=== PATIENT | male | born 1950 | race Caucasian/White ===

== ENCOUNTER 2018-07-11 06:22 | Day surgery (SDC) | payer OTHER ==
[2018-07-09 16:10] LABS: Absolute Lymphocytes (CBC) 2.2 K/uL (0.7-4.9); Absolute Monocytes 0.7 K/uL (0.1-1.3); Absolute Neutrophil 3.7 K/uL (1.8-8.0); Basophils % 0.4 % (0-1.3); Eosinophils % 1.5 % (0-4.4); Hematocrit 45.5 % (39.6-49.0); Lymphocytes % 32.4 % (15.3-44.8); Monocytes % 10.4 % (3.3-12.3); RBC Red Blood Cell Count 4.68 M/uL (4.33-5.43)
--- NOTE | 2018-07-09 16:22 | RAD REPORT ---
EXAM DESCRIPTION: RAD - Chest Pa And Lat (2 Views) - 07/09/2018 4:17 pm CLINICAL HISTORY: preop Chest pain. COMPARISON: No comparisons FINDINGS: A small left pleural effusion is present. The lungs are otherwise grossly clear. The heart is mildly prominent size with a tortuous thoracic aorta. No displaced fractures.
[2018-07-09 16:24] LABS: Potassium 4.3 mmol/L (3.5-5.1)
[2018-07-11] MEDS ORDERED: Ringers Lactate 1,000 ML IV ONE (06:57)
[2018-07-11] MEDS ORDERED: CEFAZOLIN/SWI 1gm 1 GM/10 ML SYR ONE (06:57)
[2018-07-11] MEDS ORDERED: PROPOFOL 200 MG/20 ML VIAL IV ONE (07:18)
[2018-07-11] MEDS ORDERED: FENTANYL CITR 100 MCG/2 ML ONE (07:19)
[2018-07-11] MEDS ORDERED: MIDAZOLAM HCL 2 MG/2 ML INJ ONE (07:19)
[2018-07-11] MEDS ORDERED: LIDOCAINE 2% MPF 5 ML VIAL ONE (07:20)
[2018-07-11] MEDS ORDERED: ROCURONIUM 50 MG/5 ML VIAL IV ONE (07:20)
[2018-07-11] MEDS ORDERED: ONDANSETRON 4 MG/2 ML VIAL ONE (07:21)
[2018-07-11] MEDS ORDERED: BUPIVACAINE 0.5% PF 10 ML VIAL ONE (07:27)
--- NOTE | 2018-07-11 08:39 | P.BOP ---
Preoperative diagnosis: incarcerated umbilical tender hernia, obesity, diastasis recti Postoperative diagnosis: same Primary procedure: Open repair of incarcerated umbilical tender hernia, obesity , diastasis rec Tar Distillation Supervisor: JEVON ALVA ([employer]) Estimated blood loss: <5cc Specimen: hernia sac Findings: as above Anesthesia: General Complications: None
[2018-07-11] MEDS ORDERED: GLYCOPYRROLATE 0.2 MG/ML SYR ONE (08:54)
[2018-07-11] MEDS ORDERED: NEOSTIGMINE 1 MG/ML -10 ML VIAL ONE (08:54)
[2018-07-11] MEDS: HYDROMORPHONE HCL 1 MG/ML INJ ONE ×2 (09:06→09:11)
[2018-07-11 09:34] VITALS: TEMP 98.2
[2018-07-11] MEDS ORDERED: CODEINE 30MG/APAP 300MG TAB ONE (10:00)
[2018-07-11 11:05] VITALS: BP 138/58; O2SAT 96
--- NOTE | 2018-07-11 20:41 | OP ---
Date of Procedure: 07/11/2018 Surgeon: Wayne Amor MD Preoperative Diagnoses: Incarcerated umbilical tender hernia, obesity, diastasis recti. Postoperative Diagnoses: Incarcerated umbilical tender hernia, obesity, diastasis recti. Procedures: Repair of incarcerated umbilical hernia. Estimated Blood Loss: Less than 10 cc. Specimen: Hernia sac. Anesthesia: General plus local. Indications: This is the case of a male, who comes to us with 2 problems, umbilical hernia and also large diastasis recti in the abdomen. The umbilical hernia is getting bigger. We are afraid that it will keep shooting up and develop a large ventral hernia. I am going to put my finger through it un derneath to make sure we do not have one already but at least we have umbilical hernia incarcerated a nd is giving him pain and discomfort and we should close that defect to diminish the chance of that d efect getting bigger due to the weakness in the ventral region. The patient also understands the imp ortance of no heavy lifting and also losing weight. He signed a consent. Description Of Procedure: The patient was brought to the operating room, placed in supine position. Anesthesia was done without complication. Abdominal area was prepped and draped in sterile fashion. A small incision was made in the infraumbilical region. After time out, incision was carried down to fascia. We found out umbilical hernia with incarcerated omentum that was carefully removed from s car tissue and brought back into the abdominal cavity. Hernia sac was removed. After that, the defe ct is big enough to put my finger on it. I felt the ventral region, diastasis recti. I did not feel any hernia on that region, so we did not fix anything in that area. So, the umbilical hernia was th en redressed, fascia edges were cleaned. We proceeded to close the area with #1 PDS in a figure-eigh t fashion multiple times and #1 Vicryl. The area was irrigated. Subcutaneous incision was closed wi th 3-0 chromic and the skin in subcuticular fashion with 3-0 chromic and Steri-Strips on top. Sponge , count and instrument counts were correct. The patient tolerated the procedure well. The patient w as sent to recovery in stable condition. Disposition: Home. Activity: As tolerated. No heavy lifting. Followup: Follow up in my office in 1 week. Call for appointment [phone]. Keep area dry for 48 ho urs, then may shower. Keep Steri-Strip intact. Medications: Include Tylenol No. 3 q.4 hours p.r.n. pain, Bactrim DS p.o. b.i.d. NENITA/AL Voice ID: [id number] Report ID: [id number]
== END 2018-07-11 11:06 | disposition home or self-care (01) ==
LOC: OR 06:22
PROVIDERS: ATTEND Surgery
PROC: 0WQF0ZZ Repair Abdominal Wall, Open Approach (ICD-10-PCS; principal; 2018-07-11 08:00)
DX: K42.0 Umbilical hernia with obstruction, without gangrene (principal); M62.08 Separation of muscle (nontraumatic), other site; E66.9 Obesity, unspecified; I25.10 Atherosclerotic heart disease of native coronary artery without angina pectoris; I47.1 Supraventricular tachycardia; I45.10 Unspecified right bundle-branch block; I10 Essential (primary) hypertension; E78.5 Hyperlipidemia, unspecified; Z79.82 Long term (current) use of aspirin; Z79.899 Other long term (current) drug therapy; Z95.5 Presence of coronary angioplasty implant and graft
CPT/HCPCS: 49587; 85025; 80048; 36415; 88302; 71046; J2704; J2710; J2250; J3010; J1170; J0690; J2405

== ENCOUNTER 2020-08-03 08:19 | Day surgery (SDC) | payer OTHER ==
--- NOTE | 2020-07-30 13:35 | RAD REPORT ---
EXAM DESCRIPTION: RAD - Chest Pa And Lat (2 Views) - 07/30/2020 1:29 pm CLINICAL HISTORY: preop, pending heart catheterization, hypertension COMPARISON: Two view chest July 2018 TECHNIQUE: Frontal and lateral views of the chest were obtained. FINDINGS: The lungs are clear of a focal process. Interstitial pattern matches comparison. No failur e or volume overload. Heart size is normal and central vasculature is within normal limits. No ple ural effusion or pneumothorax seen. No acute bony finding noted. No aortic abnormality. IMPRESSION: No acute cardiopulmonary process. No significant change from comparison study.
[2020-07-30 13:44] LABS: Absolute Lymphocytes (CBC) 1.8 K/uL (0.7-4.9); Basophils % 0.4 % (0-1.3); Hematocrit 45.9 % (39.6-49.0); MPV 9.5 fL (7.6-11.3); RBC Red Blood Cell Count 4.67 M/uL (4.33-5.43)
[2020-07-30 13:48] LABS: Protime INR 1.15
[2020-07-30 13:52] LABS: Potassium 4.2 mmol/L (3.5-5.1)
--- NOTE | 2020-08-01 07:28 | EKG ---
Test Date: 2020-07-30 Test Time: 12:07:03 Dining Room Tables Set Up Attendant: Apolinar MEASUREMENT RESULTS: Intervals: Rate: 53 CA: 196 QRSD: 126 QT: 402 QTc: 377 [place]: P: 42 CA: 196 QRS: 81 T: 17 INTERPRETIVE STATEMENTS: Sinus bradycardia with sinus arrhythmia Nonspecific intraventricular block Abnormal ECG Compared to ECG 07/28/2014 10:48:39 Right-axis deviation no longer present Electronically Signed On 08-01-20 07:22:48 CDT by Eddi Blair
[2020-08-03] MEDS ORDERED: NA CHLORIDE 0.9% 500 ML ONE (08:40)
[2020-08-03] MEDS ORDERED: MIDAZOLAM HCL 2 MG/2 ML INJ ONE ×2 (09:25→10:01)
[2020-08-03] MEDS ORDERED: FENTANYL CITR 100 MCG/2 ML ONE (09:25)
[2020-08-03] MEDS ORDERED: ATROPINE SULF 1 MG/10 ML SYR IV ONE (09:25)
[2020-08-03] MEDS ORDERED: NA CHLORIDE 0.9% 0 ML ONE (09:25)
[2020-08-03] MEDS ORDERED: LIDOCAINE 1% 20 ML MDV ONE (09:39)
[2020-08-03] MEDS ORDERED: HEPA 1000U/500MLS 1,000 UNIT/500 ML BAG IV ONE (09:39)
[2020-08-03] MEDS ORDERED: METHYLPREDNISOLONE 125 MG INJ ONE (09:57)
[2020-08-03] MEDS ORDERED: METOPROLOL TARTRATE 5 MG/5 ML INJ IV ONE (10:14)
[2020-08-03 10:34] VITALS: TEMP 96.7
[2020-08-03 11:40] VITALS: BP 132/71; O2SAT 93
--- NOTE | 2020-08-03 14:29 | OP ---
Date of Procedure: 08/03/2020 Surgeon: Eddi Blair MD Hide Washer: Jony Spaulding. I will keep the patient in the hospital for 2 hours. He will go home today and I will see him in the office in the next 2 weeks. No change in medical therapy for now. We can probably later increase nelson is Crestor, increase his metoprolol and if he becomes symptomatic, we will attempt an intervention. Procedure In Detail: Mr. Eaton is a 70-year-old white male. Had a stent in the LAD 10 years ago. H as a history of hypertension, dyslipidemia, gastroesophageal reflux disease, atypical chest pain, pos itive stress test, scheduled for catheterization today as an outpatient. He received 125 mg Solu-Med rol for iodine allergy. He got Versed and fentanyl for sedation. Draped and prepped in routine ster ile fashion. He had a 6-Irish sheath introduced in the right common femoral artery successfully. A ngio-Seal was used to close the case. Angiography there was normal. The left main and right main Ju dkins catheter JL4 and JR4 were used to do the heart catheterization. He was found to have moderate plaquing in the circumflex and the RCA. Had 100% mid LAD stenosis. After the stent with a CECIL 1 fl ow, there were collateral flows from the RCA post PD to the LAD. There were no complications. Blood Loss: 5 mL. Anesthesia: Total conscious sedation 45 minutes. Postoperative Diagnosis: Coronary artery disease, severe single-vessel disease. Plan: Plan is for medical therapy. VALENTÍN/AL Voice ID: [id number] Report ID: [id number]
== END 2020-08-03 12:10 | disposition home or self-care (01) ==
LOC: CCL 08:19
DX: I25.10 Atherosclerotic heart disease of native coronary artery without angina pectoris (principal); I25.82 Chronic total occlusion of coronary artery; I10 Essential (primary) hypertension; Z95.5 Presence of coronary angioplasty implant and graft; E78.2 Mixed hyperlipidemia; G47.33 Obstructive sleep apnea (adult) (pediatric); K21.9 Gastro-esophageal reflux disease without esophagitis; E66.9 Obesity, unspecified; Z68.37 Body mass index [BMI] 37.0-37.9, adult; Z91.013 Allergy to seafood; Z20.822 Contact with and (suspected) exposure to COVID-19
CPT/HCPCS: 93005; 85025; 80048; 36415; 85610; 85730; 71046; 93454; U0003; C1893; C1760; J2250 ×2; J3010; J7040; J1644; J2930; J0583